=== PATIENT | male | born 1960 ===

== ENCOUNTER → 2019-04-27 09:29 | Outpatient (CLI) | payer BC, SELFPAY ==
--- NOTE | ~2019-04-27 | CT_ITS ---
EXAMINATION: CT abdomen pelvis wo con DATE: 04/27/2019 10:01 INDICATION: Chronic prostatitis. TECHNIQUE: Computed tomography (CT) of the abdomen and pelvis was performed without intravenous contr ast. The dose-length product was 827.00 mGy-cm. Automated exposure control and iterative reconstructi on technique were employed. COMPARISON: None. FINDINGS: There is a 9 mm right middle lobe nodule, image 8. There is dependent atelectasis. Heart si ze normal. No significant pleural or pericardial effusion. No significant vascular abnormality. There are surgical changes of cystectomy. There are extensive calcifications of the vas deferens, typicall y seen in diabetics. There is diffuse thickening of the bladder wall. Prostate gland is enlarged. The liver, spleen, pancreas, adrenal glands and kidneys are unremarkable. Gallbladder is present. No acute osseous abnormality. Nonobstructive bowel gas pattern. No free air or free fluid. IMPRESSION: 1. Enlarged prostate gland. 2: Diffuse bladder wall thickening may be secondary to bladder outlet obstruction or cystitis. 3: Right middle lobe nodule measuring 9 mm. Recommend comparison any prior outside CTs if available. Otherwise, consider CT follow-up at 3 months, pet/CT or tissue sampling. Reviewed, dictated and finalized at location A. [facility] [employer] IMPRESSION: 1. Enlarged prostate gland. 2: Diffuse bladder wall thickening may be secondary to bladder outlet obstruct ion or cystitis. 3: Right middle lobe nodule measuring 9 mm. Recommend comparison any prior outs [facility] CTs if available. Otherwise, consider CT follow-up at 3 months, pet/CT or t issue sampling.
== END ==
PROVIDERS: PCP Internal Medicine Endocrinology, Diabetes & Metabolism; Visit Provider Nurse Practitioner Adult Health
DX: N41.1 Chronic prostatitis (principal); N40.0 Benign prostatic hyperplasia without lower urinary tract symptoms; R91.1 Solitary pulmonary nodule
CPT/HCPCS: 74176